=== PATIENT | female | born 1980 | race Caucasian/White ===

== ENCOUNTER 2019-03-12 18:37 | Emergency (ER) | payer OTHER ==
[~2019-03-12] VITALS: Ht 172.7 cm; Wt 102.1 kg
[2019-03-12] MEDS ORDERED: IV NORMAL SALINE 1000ML BAG 1,000 ML IV SCH (19:50)
--- NOTE | 2019-03-12 19:54 | PHYS DOC ---
Past Medical History Past Medical History: Hypertension Additional Past Medical Histor: PCOS Past Surgical History: , Tonsillectomy Alcohol Use: Rarely Drug Use: None Adult General Chief Complaint Chief Complaint: NAUSEA/VOMITING/DIARRHA HPI HPI 38-year-old female presents to the emergency department with complaints of nausea, vomiting 2 hours. She is well describes epigastric pain. Patient states she's had chills, no fever. Positive constipation. Last menstrual - Currently. She did does describe sick contacts however more fever, cough, chills. Nothing makes symptoms worse, nothing makes better Review of Systems Review of Systems Constitutional: chills Respiratory: Denies cough or shortness of breath [] Cardiovascular: No additional information not addressed in HPI [] GI: + epigastric pain, nausea, vomiting, no bloody stools or diarrhea [] : Denies dysuria or hematuria [] Musculoskeletal: Denies back pain or joint pain [] Neurologic: Denies headache, focal weakness or sensory changes [] All other systems were reviewed and found to be within normal limits, except as documented in this note. Current Medications Current Medications Current Medications Medications (Trade) Dose Ordered Sig/Linda Start Time Stop Time Status Last Admin Dose Admin Info (CONTRAST GIVEN -- Rx MONITORING) 1 each PRN DAILY PRN 03/12/19 21:30 03/14/19 21:29 Iohexol (Omnipaque 300 Mg/ml) 75 ml 1X ONCE 03/12/19 21:30 03/12/19 21:31 DC 03/12/19 21:16 75 ML Ondansetron HCl (Zofran) 4 mg 1X ONCE 03/12/19 20:00 03/12/19 20:01 DC 03/12/19 20:42 4 MG Sodium Chloride 1,000 ml @ 1,000 mls/hr Q1H 03/12/19 19:50 03/12/19 20:49 DC 03/12/19 20:41 1,000 MLS/HR Allergies Allergies Allergies Coded Allergies Type Severity Reaction Last Updated Verified Sulfa (Sulfonamide Antibiotics) Allergy Unknown 03/12/19 Yes Physical Exam Physical Exam Constitutional: Well developed, well nourished, no acute distress, non-toxic appearance. [] HENT: Normocephalic, atraumatic, bilateral external ears normal, oropharynx moist, no oral exudates, nose normal. [] Eyes: PERRLA, EOMI, conjunctiva normal, no discharge. [] Cardiovascular:Heart rate regular rhythm, no murmur [] Lungs & Thorax: Bilateral breath sounds clear to auscultation [] Abdomen: Bowel sounds normal, soft, no tenderness, no masses, no pulsatile masses. [] Skin: Warm, dry, no erythema, no rash. [] Extremities: No tenderness, no edema. [] Neurologic: Alert and oriented X 3, no focal deficits noted. [] Psychologic: Affect normal, judgement normal, mood normal. [] Current Patient Data Vital Signs Vital Signs Date Time Temp Pulse Resp B/P (MAP) Pulse Ox O2 Delivery O2 Flow Rate FiO2 03/12/19 20:39 93 15 141/93 (109) 100 Room Air 03/12/19 19:20 98.4 98.4 Lab Values Laboratory Tests Test 03/12/19 19:20 03/12/19 20:30 Urine Collection Type Unknown Urine Color Yellow Urine Clarity Clear Urine pH 7.0 Urine Specific [place] 1.015 Urine Protein 30 mg/dL (NEG-TRACE) Urine Glucose (UA) Negative mg/dL (NEG) Urine Ketones (Stick) Trace mg/dL (NEG) Urine Blood Small (NEG) Urine Nitrite Negative (NEG) Urine Bilirubin Negative (NEG) Urine Urobilinogen Dipstick 0.2 mg/dL (0.2 mg/dL) Urine Leukocyte Esterase Negative (NEG) Urine RBC 1-2 /HPF (0-2) Urine WBC 1-4 /HPF (0-4) Urine Squamous Epithelial Cells Mod /LPF Urine Bacteria Few /HPF (0-FEW) Urine Hyaline Casts Few /HPF Urine Mucus Mod /LPF White Blood Count 10.0 x10^3/uL (4.0-11.0) Red Blood Count 4.93 x10^6/uL (3.50-5.40) Hemoglobin 14.4 g/dL (12.0-15.5) Hematocrit 41.5 % (36.0-47.0) Mean Corpuscular Volume 84 fL (79-100) Mean Corpuscular Hemoglobin 29 pg (25-35) Mean Corpuscular Hemoglobin Concent 35 g/dL (31-37) Red Cell Distribution Width 14.1 % (11.5-14.5) Platelet Count 282 x10^3/uL (140-400) Neutrophils (%) (Auto) 60 % (31-73) Lymphocytes (%) (Auto) 34 % (24-48) Monocytes (%) (Auto) 5 % (0-9) Eosinophils (%) (Auto) 1 % (0-3) Basophils (%) (Auto) 1 % (0-3) Neutrophils # (Auto) 5.9 x10^3/uL (1.8-7.7) Lymphocytes # (Auto) 3.3 x10^3/uL (1.0-4.8) Monocytes # (Auto) 0.5 x10^3/uL (0.0-1.1) Eosinophils # (Auto) 0.1 x10^3/uL (0.0-0.7) Basophils # (Auto) 0.1 x10^3/uL (0.0-0.2) Sodium Level 138 mmol/L (136-145) Potassium Level 3.5 mmol/L (3.5-5.1) Chloride Level 102 mmol/L (98-107) Carbon Dioxide Level 23 mmol/L (21-32) Anion Gap 13 (6-14) Blood Urea Nitrogen 14 mg/dL (7-20) Creatinine 1.0 mg/dL (0.6-1.0) Estimated GFR (Cockcroft-Gault) 62.4 BUN/Creatinine Ratio 14 (6-20) Glucose Level 119 mg/dL (70-99) H Calcium Level 9.3 mg/dL (8.5-10.1) Total Bilirubin 0.2 mg/dL (0.2-1.0) Aspartate Amino Transferase (AST) 14 U/L (15-37) L Alanine Aminotransferase (ALT) 25 U/L (14-59) Alkaline Phosphatase 81 U/L (46-116) Troponin I Quantitative < 0.017 ng/mL (0.000-0.055) Total Protein 7.6 g/dL (6.4-8.2) Albumin 3.9 g/dL (3.4-5.0) Albumin/Globulin Ratio 1.1 (1.0-1.7) Lipase 143 U/L (73-393) Laboratory Tests 03/12/19 20:30 Laboratory Tests 03/12/19 20:30 EKG EKG [] Radiology/Procedures Radiology/Procedures [facility] [address] [place] [address] IMAGING REPORT Signed PATIENT: KERRI SCOTT ACCOUNT: [id number] : 1980 LOCATION: ER AGE: 38 SEX: F EXAM STATUS: REG ER ORD. PHYSICIAN: JESSICA MATA MD REASON: epigastric pain/radiation to back, normal lipase/LFTs PROCEDURE: CT ABDOMEN W/CONTRAST CT abdomen with contrast PQRS statement: CT scans at this facility use dose reduction including either automated exposure control, iterative reconstructions, and /or weight based radiation dosing via mA and kV modification when appropriate to reduce radiation dose to as low as reasonably achievable. HISTORY: Epigastric abdominal pain and back pain. Contrast: 75 mL Omnipaque 300 intravenous contrast. Abdomen findings: Hypodense liver likely fatty. Gallbladder, pancreas, spleen, adrenal glands unremarkable. 1 severe fatty lesion left renal upper pole typical of an angiomyolipoma. Right renal lower pole 1.5 cm oval hypodense lesion density of 23 units, indeterminate. Imaged appendix is negative a portion may extend outside the [id number] however most of the is visualized and is normal. Imaged GI tract demonstrates no obstruction or inflammatory change. No abdominal fluid or adenopathy. Vessels, lung bases and bones are unremarkable. IMPRESSION: 1. No acute process. Appendix is negative. 2. 1.5 cm indeterminate hypodense lesion of the right kidney based on its measured postcontrast density of 23 units. Consider further assessment with outpatient sonography or MR imaging. Electronically signed by: Renny Gomes MD (03/12/2019 10:27 PM) [facility] DICTATED and SIGNED BY: RENNY GOMES MD DATE: 03/12/192226 [] Course & Med Decision Making Course & Med Decision Making Pertinent Labs and Imaging studies reviewed. (See chart for details) []38-year-old female presents to the emergency department with complaints of nausea, vomiting 2 hours. She is well describes epigastric pain. Patient states she's had chills, no fever. Positive constipation. Last menstrual - Currently. She did does describe sick contacts however more fever, cough, chills. Nothing makes symptoms worse, nothing makes better Labs reviewed, white blood cell count 10.0, lipase 143, troponin 0.017. Patient's nausea improved however she describes continued epigastric discomfort. Patient is very nervous about pain attempted reassurance however she is insistent on her abdomen being scanned we'll plan for CT the abdomen with IV contrast. CT negative for acute process, hypodense lesion appreciated on kidney with recs for US as outpatient Discussed dc with patient and follow up Lynne Disclaimer Lynne Disclaimer This electronic medical record was generated, in whole or in part, using a voice recognition dictation system. Departure Departure Impression: Primary Impression: Epigastric abdominal pain Additional Impression: Nausea & vomiting Disposition: HOME, SELF-CARE Condition: IMPROVED Referrals: NO PCP (PCP) Patient Instructions: Abdominal Pain (Nonspecific) Additional Instructions: Recommend follow up with PCP 3 - 5 days Return to the ER with worsening symptoms, intractable pain, fever, altered mental status Tylenol/Motrin as needed for pain Take medications as prescribed CT negative for acute abdominal process Scripts Dicyclomine Hcl (DICYCLOMINE HCL) 10 Mg Capsule 1 CAP PO TID for 4 Days, #12 CAP 11 Refills Prov: JESSICA MATA MD 03/12/19 Ondansetron Hcl (ZOFRAN) 4 Mg Tablet 1 TAB PO PRN Q6-8HRS for nausea, #12 TAB Prov: JESSICA MATA MD 03/12/19 Pantoprazole Sodium (PROTONIX) 20 Mg Tablet.dr 1 TAB PO DAILY, #30 TAB Prov: JESSICA MATA MD 03/12/19 Problem Qualifiers Additional Impression: Nausea & vomiting Vomiting type: unspecified Vomiting Intractability: unspecified Qualified Codes: R11.2 - Nausea with vomiting, unspecified JESSICA MATA MD Mar 12, 2019 19:54
[2019-03-12 19:57] LABS: BILIRUBIN,URINE NEGATIVE (NEG); CLARITY,URINE CLEAR; COLOR,URINE YELLOW; NITRITE,URINE NEGATIVE (NEG); PROTEIN,URINE 30 mg/dL (NEG-TRACE); UROBILINOGEN,URINE 0.2 mg/dL (0.2 mg/dL)
[2019-03-12] MEDS ORDERED: ONDANSETRON PF 4 MG/2 ML VIAL. IV ONE (20:00)
[2019-03-12 20:01] LABS: BACTERIA,URINE FEW /HPF (0-FEW); HYALINE CASTS, URINE FEW /HPF; SQUAMOUS EPITHELIAL CELL,UR MOD /LPF
[2019-03-12 20:37] LABS: BASO # 0.1 x10^3/uL (0.0-0.2); BASO % 1 % (0-3); EOS # 0.1 x10^3/uL (0.0-0.7); EOS % 1 % (0-3); HEMATOCRIT 41.5 % (36.0-47.0); HEMOGLOBIN 14.4 g/dL (12.0-15.5); LYMPH # 3.3 x10^3/uL (1.0-4.8); LYMPH % 34 % (24-48); MEAN CORPUSCULAR HEMOGLOBIN 29 pg (25-35); MEAN CORPUSCULAR HGB CONC 35 g/dL (31-37); MEAN CORPUSCULAR VOLUME 84 fL (79-100); MONO # 0.5 x10^3/uL (0.0-1.1); MONO % 5 % (0-9); NEUT # 5.9 x10^3/uL (1.8-7.7); NEUT % 60 % (31-73); PLATELET COUNT 282 x10^3/uL (140-400); RED BLOOD COUNT 4.93 x10^6/uL (3.50-5.40); RED CELL DISTRIBUTION WIDTH 14.1 % (11.5-14.5)
[2019-03-12 20:47] LABS: CALCIUM 9.3 mg/dL (8.5-10.1); GFR 62.4; POTASSIUM 3.5 mmol/L (3.5-5.1)
[2019-03-12 20:53] LABS: ALBUMIN 3.9 g/dL (3.4-5.0); ALBUMIN/GLOBULIN RATIO 1.1 (1.0-1.7); TOTAL BILIRUBIN 0.2 mg/dL (0.2-1.0); TOTAL PROTEIN 7.6 g/dL (6.4-8.2)
[2019-03-12] MEDS ORDERED: IOHEXOL 300 MG/ML 100ML VIAL. IV ONE (21:30)
[2019-03-12] MEDS ORDERED: CONTRAST GIVEN. MC PRN (21:30)
--- NOTE | 2019-03-12 22:30 | RAD ---
CT abdomen with contrast PQRS statement: CT scans at this facility use dose reduction including either automated exposure control, iterative reconstructions, and /or weight based radiation dosing via mA and kV modification when appropriate to reduce radiation dose to as low as reasonably achievable. HISTORY: Epigastric abdominal pain and back pain. Contrast: 75 mL Omnipaque 300 intravenous contrast. Abdomen findings: Hypodense liver likely fatty. Gallbladder, pancreas, spleen, adrenal glands unremarkable. 1 severe fatty lesion left renal upper pole typical of an angiomyolipoma. Right renal lower pole 1.5 cm oval hypodense lesion density of 23 units, indeterminate. Imaged appendix is negative a portion may extend outside the [id number] however most of the is visualized and is normal. Imaged GI tract demonstrates no obstruction or inflammatory change. No abdominal fluid or adenopathy. Vessels, lung bases and bones are unremarkable. IMPRESSION: 1. No acute process. Appendix is negative. 2. 1.5 cm indeterminate hypodense lesion of the right kidney based on its measured postcontrast density of 23 units. Consider further assessment with outpatient sonography or MR imaging. Electronically signed by: Blayne Gomes MD (03/12/2019 10:27 PM) [facility]
[2019-03-12] MEDS ORDERED: ONDA4TAB7 PO (22:41)
[2019-03-12] MEDS ORDERED: DICY10CA3 PO (22:41)
[2019-03-12] MEDS ORDERED: PANT20TA2 PO (22:41)
[2019-03-12 23:04] VITALS: BP 147/92
--- NOTE | 2019-03-13 07:31 | EKG ---
[facility] [address] [place] [address] Test Date: 2019-03-12 Test Time: 19:58:55 Pat Name: KERRI SCOTT Department: Room: Gender: F Solderer Electronic: : 1980 Requested By: JESSICA MATA Order Number: [id number] Reading MD: Measurements Intervals [place] Rate: 92 P: 23 VA: 144 QRS: 3 QRSD: 76 T: 7 QT: 360 QTc: 450 Interpretive Statements SINUS RHYTHM NORMAL ECG RI6.01 No previous ECG available for comparison
== END 2019-03-12 23:15 | disposition home or self-care (01) ==
LOC: ER 18:37
DX: R10.13 Epigastric pain (principal); R11.2 Nausea with vomiting, unspecified; R05 Cough; I10 Essential (primary) hypertension; Z88.2 Allergy status to sulfonamides
CPT/HCPCS: 36415; 74160; 80053; 81001; 83690; 84484; 85025; 93005; 96361; 96374; 99285; J2405; J7030; Q9967